=== PATIENT | male | born 2005 | race Hispanic/Latino ===

== ENCOUNTER 2023-05-05 20:10 | Inpatient (IN) | payer OTHER ==
[~2023-05-05 20:10] MED LIST: Iopamidol 370 76% 100 ML VIAL ONE
[2023-05-05 21:12] LABS: PTT 27.8 sec (22.0-33.0); Prothrombin Time 10.9 sec (9.5-12.1)
[2023-05-05 21:16] LABS: ALT (SGPT) 13 U/L (8-55); AST (SGOT) 11 U/L (10-45); Albumin 4.8 g/dL (3.5-5.0); Alkaline Phosphatase 80 U/L (50-130); Anion Gap 14 mmol/L (10-20); BUN (Urea Nitrogen) 16 mg/dL (8.4-21.0); Bilirubin, Total 0.2 mg/dL (0.2-1.2); Calc. Creatinine Clearance 0 mL/min (70-130); Calcium 9.5 mg/dL (7.8-10.44); Carbon Dioxide 20 mmol/L (22-29); Chloride 112 mmol/L (98-107); Estimated GFR 100; Globulin 2.9 g/dL (2.4-3.5); Glucose 92 mg/dL (70-105); Lipase 45 U/L (8-78); Potassium 3.7 mmol/L (3.5-5.1); Protein, Total 7.7 g/dL (6.0-8.3); Sodium 142 mmol/L (136-145)
[2023-05-05 21:22] LABS: Troponin I Less than 0.010 ng/mL (< 0.028)
[2023-05-05 21:23] LABS: #Basophils 0.1 10x3/uL (0.0-0.2); #Eosinphils 0.5 10x3/uL (0.0-0.5); #Monocytes 0.5 10x3/uL (0.0-1.1); #Neutrophils 2.9 10x3/uL (1.5-8.4); %Basophils 0.9 % (0.0-2.0); %Eosinophils 8.1 % (0.0-6.0); %Lymphocytes 39.5 % (18.0-47.0); %Monocytes 7.5 % (0.0-10.0); %Neutrophils 43.7 % (40.0-75.0); Hematocrit 41.2 % (38.8-50.0); Hemoglobin 13.9 g/dL (13.5-17.5); Mean Corpuscular HGB CONC 33.7 g/dL (32.0-36.0); Mean Corpuscular Volume 88.8 fl (81.2-95.1); Mean Platelet Volume 10.5 fl (7.4-10.4); Platelet Count 207 10x3/uL (150-450); RBC Distribution Width 12.2 % (11.5-14.5); Red Blood Cell (RBC) Count 4.64 10x6/uL (4.32-5.72); White Blood Cell (WBC) Count 6.7 10x3/uL (3.5-10.5)
[2023-05-06] MEDS ORDERED: Lorazepam 2 MG/ML VIAL SLOW IVP PRN ×2 (00:21→01:03)
[2023-05-06 00:31] VITALS: BMI 20.1
[2023-05-06] MEDS: Sodium Chloride 0.9% 1,000 ML IV SCH ×2 (00:42→09:18)
[2023-05-06] MEDS ORDERED: Sodium Chloride 0.9% 500 ML IV SCH (00:45)
[2023-05-06 01:06] LABS: Troponin I Less than 0.010 ng/mL (< 0.028)
[2023-05-06 04:25] LABS: #Basophils 0.1 10x3/uL (0.0-0.2); #Eosinphils 0.6 10x3/uL (0.0-0.5); #Monocytes 0.4 10x3/uL (0.0-1.1); %Basophils 0.9 % (0.0-2.0); %Eosinophils 9.2 % (0.0-6.0); %Lymphocytes 36.8 % (18.0-47.0); %Monocytes 6.7 % (0.0-10.0); %Neutrophils 46.1 % (40.0-75.0); Hematocrit 39.8 % (38.8-50.0); Hemoglobin 13.1 g/dL (13.5-17.5); Mean Corpuscular HGB CONC 32.9 g/dL (32.0-36.0); Mean Corpuscular Hemoglobin 29.6 pg (27.0-33.0); Mean Platelet Volume 10.2 fl (7.4-10.4); Platelet Count 178 10x3/uL (150-450); RBC Distribution Width 12.2 % (11.5-14.5); Red Blood Cell (RBC) Count 4.42 10x6/uL (4.32-5.72); White Blood Cell (WBC) Count 6.5 10x3/uL (3.5-10.5)
[2023-05-06 04:34] LABS: Anion Gap 11 mmol/L (10-20); BUN (Urea Nitrogen) 15 mg/dL (8.4-21.0); Calc. Creatinine Clearance 113 mL/min (70-130); Calcium 8.5 mg/dL (7.8-10.44); Carbon Dioxide 20 mmol/L (22-29); Chloride 114 mmol/L (98-107); Estimated GFR 129; Glucose 98 mg/dL (70-105); Potassium 3.9 mmol/L (3.5-5.1); Sodium 141 mmol/L (136-145)
[2023-05-06 04:42] LABS: Troponin I Less than 0.010 ng/mL (< 0.028)
[2023-05-06] MEDS ORDERED: Topiramate 100 MG TAB PO SCH (09:00)
[2023-05-06] MEDS: BRIVARACETAM PO SCH ×2 (09:44→20:42)
[2023-05-06] MEDS ORDERED: Magnevist 469MG/ML 20 ML VIAL ONE (10:41)
[2023-05-06] MEDS: Topiramate 100 MG TAB PO SCH (20:41)
[2023-05-06] MEDS ORDERED: APTIOM PO SCH (21:00)
[2023-05-07 04:08] LABS: Anion Gap 11 mmol/L (10-20); BUN (Urea Nitrogen) 11 mg/dL (8.4-21.0); Calc. Creatinine Clearance 111 mL/min (70-130); Calcium 8.9 mg/dL (7.8-10.44); Carbon Dioxide 19 mmol/L (22-29); Chloride 113 mmol/L (98-107); Estimated GFR 128; Glucose 95 mg/dL (70-105); Potassium 3.9 mmol/L (3.5-5.1); Sodium 139 mmol/L (136-145)
[2023-05-07 04:15] LABS: Troponin I Less than 0.010 ng/mL (< 0.028)
[2023-05-07 04:21] LABS: #Eosinphils 0.7 10x3/uL (0.0-0.5); #Monocytes 0.4 10x3/uL (0.0-1.1); #Neutrophils 3.5 10x3/uL (1.5-8.4); %Basophils 0.6 % (0.0-2.0); %Eosinophils 9.5 % (0.0-6.0); %Lymphocytes 34.7 % (18.0-47.0); %Monocytes 5.3 % (0.0-10.0); %Neutrophils 49.6 % (40.0-75.0); Hematocrit 42.5 % (38.8-50.0); Hemoglobin 14.2 g/dL (13.5-17.5); Mean Corpuscular HGB CONC 33.4 g/dL (32.0-36.0); Mean Corpuscular Hemoglobin 29.6 pg (27.0-33.0); Mean Corpuscular Volume 88.5 fl (81.2-95.1); Mean Platelet Volume 10.2 fl (7.4-10.4); Platelet Count 197 10x3/uL (150-450); RBC Distribution Width 12.2 % (11.5-14.5)
[2023-05-07 07:24] VITALS: BP 97/57; TEMP 97.8
[2023-05-07] MEDS: Topiramate 100 MG TAB PO SCH (08:36)
[2023-05-07] MEDS: BRIVARACETAM PO SCH (08:36)
== END 2023-05-07 12:20 | disposition home or self-care (01) | DRG 101 ==
LOC: CSHERS 20:10 → UNDOADMOB 23:50 → CSHTELE 23:50 → OBSVTOIN 05-06 11:44
PROVIDERS: ADMIT Family Medicine; ATTEND Hospitalist
DX: G40.409 Other generalized epilepsy and epileptic syndromes, not intractable, without status epilepticus (principal); I69.351 Hemiplegia and hemiparesis following cerebral infarction affecting right dominant side; R07.81 Pleurodynia; G93.89 Other specified disorders of brain; R05.9 Cough, unspecified; Z86.711 Personal history of pulmonary embolism; Z88.6 Allergy status to analgesic agent; Z98.890 Other specified postprocedural states; Z79.899 Other long term (current) drug therapy; Z82.49 Family history of ischemic heart disease and other diseases of the circulatory system; Z83.3 Family history of diabetes mellitus; Z88.8 Allergy status to other drugs, medicaments and biological substances; F01.50 Vascular dementia, unspecified severity, without behavioral disturbance, psychotic disturbance, mood disturbance, and anxiety
CPT/HCPCS: 36415; 36416; 70450; 70544; 70551; 70552; 71046; 71275; 80048; 80053; 83690; 84146; 84484; 85025; 85610; 85730; 93005; 93010; 93306; A9579; J7030; J7050; Q9967